=== PATIENT | male | born 1945 | race Caucasian/White ===

== ENCOUNTER → 2017-01-26 | Outpatient (CLI) | payer OTHER ==
[~2017-01-26] MED LIST: FLX10; LISI-461; OXYC-57
--- NOTE | 2017-01-26 17:51 | DIAGNOSTIC IMAGING REPORT ---
Brain MRI WITHOUT CONTRAST HISTORY: Mental status change NEW GAIT Disturbance MYELOPATHY TECHNIQUE: Multiplanar multisequence MRI of the brain was performed without the use of contrast. COMPARISON STUDY: None. FINDINGS: There are no areas of restricted diffusion to suggest acute infarction. The midline structures are intact. The paranasal sinuses are clear. The mastoid air cells are clear. The ventricles and sulci are within normal limits for age. There is no mass, hematoma, midline shift. The major vascular flow-voids at the skull base are well maintained. IMPRESSION: No acute intracranial abnormality. Mild age-related atrophy and chronic small vessel change Electronically signed by: Sarthak Calixto M.D. 01/26/2017 5:50 PM Dictated Date/Time: 01/26/2017 5:48 PM
--- NOTE | 2017-01-26 17:57 | DIAGNOSTIC IMAGING REPORT ---
CERVICAL SPINE MRI HISTORY: Pain. Myelopathy. NEW GAIT Disturbance MYELOPATHY TECHNIQUE: Multiplanar multisequence MRI of the cervical spine was performed without the use of contrast. COMPARISON STUDY: None. FINDINGS: Considerable degenerative disc change throughout the entire cervical region. Signal characteristics of the vertebral bodies are unremarkable. Degenerative disc changes noted throughout. Multilevel narrowing of the spinal canal is present. C2-C3: Broad-based bulging disc with partial effacement anterior subarachnoid space. Significant narrowing of the left neural foramina. C3-C4: Broad-based bulging disc with mild impact anterior cervical cord. Narrowing of the neuroforamina bilaterally. C4-C5: Mild broad-based disc bulge. Mild osteophytic narrowing of the neuroforamina bilaterally. C5-C6: Broad-based posterior disc herniation with minimal impact anterior cervical cord. Moderate narrowing of the neuroforamina bilaterally. C6-C7: Central bulging disc with minimal impact anterior cervical cord. Moderate osteophytic narrowing of the neuroforamina bilaterally. C7-T1: No significant central canal or neural foraminal narrowing. IMPRESSION: 1. Somewhat limited study technically as the patient had difficulty in tolerating the study. 2. Significant degenerative disc change throughout with posterior osteophytic change throughout the entire cervical region. 3. Broad-based bulging disc with posterior osteophytic reaction at multiple levels with significant narrowing of the neuroforamina bilaterally at virtually all levels of the cervical region. Electronically signed by: Sarthak Calixto M.D. 01/26/2017 5:56 PM Dictated Date/Time: 01/26/2017 5:53 PM
== END | disposition home or self-care (01) ==
LOC: C.MRI 15:28
PROVIDERS: ATTEND Physical Medicine & Rehabilitation
DX: R07.89 Other chest pain (principal); R26.9 Unspecified abnormalities of gait and mobility

== ENCOUNTER → 2017-01-27 | Outpatient (CLI) | payer OTHER ==
--- NOTE | 2017-01-27 18:48 | DIAGNOSTIC IMAGING REPORT ---
MRI THORACIC SPINE WITHOUT CLINICAL HISTORY: New onset gait disturbance. Difficulty walking. Frequent falls. Possible myopathy. Cerebral palsy. PRIOR STUDIES: None TECHNIQUE: MR scanning of the thoracic spine was performed using multiple pulse sequences. No gadolinium was administered. FINDINGS: The thoracic discs are unremarkable without evidence of herniation. Vertebral bodies are normal in height and alignment and bone marrow signal is unremarkable. The spinal cord is unremarkable. Incidental note is made of a hiatal hernia IMPRESSION: No significant abnormality is seen in the MR scan of the thoracic spine. Electronically signed by: Bernard Goins M.D. 01/27/2017 6:47 PM Dictated Date/Time: 01/27/2017 6:44 PM
--- NOTE | 2017-01-27 19:06 | DIAGNOSTIC IMAGING REPORT ---
MRI LUMBAR SPINE W/O CONTRAST CLINICAL HISTORY: New gait disturbance. Fall. Increased difficulty walking. Possible myelopathy. Cerebral palsy. TECHNIQUE: Sagittal and axial T1, T2 and STIR images were obtained. COMPARISON STUDY: No previous studies for comparison. OBSERVATIONS: The vertebral bodies and posterior elements appear intact. There is no abnormal bony signal present to suggest a marrow replacement process. There is degenerative endplate signal changes at several levels. L1-2: There is a mild circumferential disc bulge. There is no significant spinal or foraminal stenosis L2-3: There is a mild circumferential disc bulge present. There is no significant spinal stenosis. There is minor right-sided foraminal narrowing L3-4: There is a circumferential disc bulge. There is minor spinal canal narrowing. There is moderate bilateral foraminal narrowing, more severe in the right. L4-5: There is a circumferential disc bulge present. There is fragmentation of the left L4-5 facet joint. There is left-sided foraminal narrowing. L5-S1: There is a circumferential disc bulge. There is left-sided facet joint fragmentation. There is mild right-sided severe left-sided foraminal narrowing. The conus medullaris and cauda equina appear normal. IMPRESSION: Multilevel spondylitic changes with multilevel disc bulges. There is mild spinal stenosis the L3-4 level. There is multilevel foraminal narrowing, most severe at the L4-5, and L5-S1 levels of the left Electronically signed by: Bernard Goins M.D. 01/27/2017 7:04 PM Dictated Date/Time: 01/27/2017 7:00 PM
== END | disposition home or self-care (01) ==
LOC: C.MRI 17:09
PROVIDERS: ATTEND Physical Medicine & Rehabilitation
DX: R26.9 Unspecified abnormalities of gait and mobility (principal); R29.6 Repeated falls; M48.06 Spinal stenosis, lumbar region; M51.26 Other intervertebral disc displacement, lumbar region